=== PATIENT | male | born 1945 | race Caucasian/White ===

== ENCOUNTER 2019-11-18 10:54 | Outpatient (CLI) | payer MEDICARE ==
--- NOTE | 2019-11-18 17:39 | XRAY Report ---
PROCEDURE: Knee 3 View LT INDICATIONS: DERANGEMENT OF LATERAL MENISCUS TECHNIQUE: 3 views of the left knee(s) were acquired. COMPARISON: None. FINDINGS: Bones: No fractures or dislocations. No suspicious bony lesions. Soft tissues: No joint effusion. No suspicious soft tissue calcifications. IMPRESSION: No fracture. No osseous lesion. If there is continued clinical concern for pathology, then repeat yrn in film radiographs (7-10 days) or advanced imaging (CT, MR, bone scan) should be considered for furt her evaluation. Reviewed by: Estrella Gaines MD, PhD on 11/18/2019 5:38 PM PDT Approved by: Estrella Gaines MD, PhD on 11/18/2019 5:38 PM PDT Station ID: [id number]
== END 2019-11-18 10:55 | disposition home or self-care (01) ==
LOC: DI.S 10:54
PROVIDERS: ATTEND Registered Nurse
DX: M23.301 Other meniscus derangements, unspecified lateral meniscus, left knee (principal)

== ENCOUNTER → 2022-06-08 15:42 | Outpatient (CLI) | payer MEDICARE ==
--- NOTE | 2022-06-08 15:25 | XRAY Report ---
PROCEDURE: Chest 2 View X-Ray INDICATIONS: ANTERIOR CHEST WALL PAIN TECHNIQUE: 2 views of the chest were acquired. COMPARISON: None. FINDINGS: Surgical changes and devices: None. Lungs and pleura: No pleural effusions or pneumothorax. Lungs are clear. Mediastinum: Mediastinal contours are normal. Heart size is normal. Bones and chest wall: No suspicious bony abnormalities. Soft tissues appear unremarkable. IMPRESSION: No acute cardiopulmonary process demonstrated radiographically. Reviewed by: Goyo Terry MD on 06/08/2022 3:23 PM PDT Approved by: Goyo Terry MD on 06/08/2022 3:23 PM PDT Station ID: [id number]
== END | disposition home or self-care (01) ==
LOC: DI.S 15:42
PROVIDERS: ATTEND Physician Assistant Medical
DX: R07.89 Other chest pain (principal)